=== PATIENT | female | born 1965 | race Two or more races ===

== ENCOUNTER 2024-04-08 18:35 | Emergency (ER) | payer OTHER ==
[~2024-04-08] VITALS: Ht 165.1 cm; Wt 66.7 kg
[~2024-04-08 18:35] MED LIST: VOLTAREM 50 MG PO
[2024-04-08] MEDS ORDERED: TRIAMCINOLONE ACETONIDE 40 MG/ML VIAL IM ONE (19:00)
[2024-04-08] MEDS ORDERED: KETOROLAC TROMETHAMINE 60 MG VIAL IM ONE ×2 (19:00→19:14)
[2024-04-08] MEDS ORDERED: ORPHENADRINE CITRATE 100 MG TABLET PO ONE (19:00)
[2024-04-08] MEDS ORDERED: TRIAMCINOLONE ACETONIDE 40 MG/ML VIAL ONE (19:13)
== END 2024-04-08 20:09 ==
LOC: ER 18:36
DX: M54.50 Low back pain, unspecified (principal); S33.5XXA Sprain of ligaments of lumbar spine, initial encounter